=== PATIENT | male | born 1955 | race Hispanic/Latino ===

== ENCOUNTER 2024-01-14 07:17 | Emergency (ER) | payer BC, MEDICARE, OTHER ==
[~2024-01-14] VITALS: Ht 170.2 cm; Wt 95.3 kg
[~2024-01-14 07:17] MED LIST: ALLO100T PO; DUTA1CPM PO; METO-408 PO; OLME5TAB32 PO
[2024-01-14 09:16] VITALS: BP 131/77; PULSE 57; RESP 18; O2SAT 97
[2024-01-14] MEDS ORDERED: IBUP-2076 PO (09:46)
[2024-01-14] MEDS ORDERED: CYCL10TA16 PO (09:46)
== END 2024-01-14 09:53 | disposition home or self-care (01) ==
LOC: EDH 07:17
DX: M47.22 Other spondylosis with radiculopathy, cervical region (principal); E78.00 Pure hypercholesterolemia, unspecified; I10 Essential (primary) hypertension
CPT/HCPCS: 72040; 73030